=== PATIENT | male | born 1950 | race Caucasian/White ===

== ENCOUNTER 2018-03-30 09:15 | Outpatient (CLI) | payer MEDICARE, OTHER | END 2018-03-30 09:16 | disposition home or self-care (01) | LOC: BICCT 09:15 | PROVIDERS: ATTEND Internal Medicine | DX: R91.1 Solitary pulmonary nodule (principal) | CPT/HCPCS: 71250 ==

== ENCOUNTER 2018-04-26 10:03 | Outpatient (CLI) | payer MEDICARE, OTHER ==
--- NOTE | 2018-04-26 11:59 | RAD ---
2 VIEWS CHEST: Date: 04/26/18 COMPARISON: None. HISTORY: Preoperative radiograph. FINDINGS: Two views of the chest show normal sized cardiomediastinal silhouette. There is no evidence of consol idation, mass, or pleural effusion. Degenerative changes are seen in the spine. IMPRESSION: No evidence of acute cardiopulmonary disease. POS: [facility]
[2018-04-26 13:21] LABS: #Eosinphils 0.1 thou/uL (0.0-0.7); #Lymphocytes 1.4 thou/uL (1.20-3.40); #Monocytes 0.6 thou/uL (0.11-0.59); #Neutrophils 4.2 thou/uL (1.40-6.50); %Basophils 0.8 % (0.0-1.0); %Eosinophils 1.6 % (0.0-10.0); %Lymphocytes 22.6 % (21.0-51.0); Hemoglobin 14.6 g/dL (14.0-18.0); Mean Corpuscular Hemoglobin 32.2 pg (27.0-31.0); Mean Corpuscular Volume 97.4 fL (78.0-98.0); Mean Platelet Volume 8.1 fL (7.4-10.4); Platelet Count 245 thou/uL (130-400); RBC Distribution Width 11.7 % (11.5-14.5); Red Blood Cell (RBC) Count 4.55 mill/uL (4.70-6.10); White Blood Cell (WBC) Count 6.4 thou/uL (4.8-10.8)
[2018-04-26 13:40] LABS: Anion Gap 15 mmol/L (10-20); BUN (Urea Nitrogen) 20 mg/dL (8.4-25.7); Calc. Creatinine Clearance 0 mL/min (70-130); Calcium 9.4 mg/dL (7.8-10.44); Carbon Dioxide 25 mmol/L (23-31); Chloride 104 mmol/L (98-107); Estimated GFR-MDRD 86; Glucose 169 mg/dL (80-115); Potassium 4.7 mmol/L (3.5-5.1); Sodium 139 mmol/L (136-145)
--- NOTE | 2018-04-27 07:58 | EKG ---
Test Reason : Blood Pressure : / mmHG Vent. Rate : 064 BPM Atrial Rate : 064 BPM P-R Int : 166 ms QRS Dur : 150 ms QT Int : 440 ms P-R-T Axes : 064 100 049 degrees QTc Int : 453 ms Normal sinus rhythm Right bundle branch block Abnormal ECG No previous ECGs available Confirmed by DR. Basil BROWN ([id number]) on 04/27/2018 7:57:55 AM Referred By: CHRISTIE Confirmed By:DR. Basil BROWN
== END 2018-04-26 10:04 | disposition home or self-care (01) ==
LOC: LABBT 10:03
PROVIDERS: ATTEND Orthopaedic Surgery Hand Surgery
DX: Z01.818 Encounter for other preprocedural examination (principal); M72.0 Palmar fascial fibromatosis [Dupuytren]
CPT/HCPCS: 71046; 80048; 85025; 93005; 93010

== ENCOUNTER 2018-07-05 09:46 | Outpatient (CLI) | payer MEDICARE, OTHER ==
[2018-07-05 10:20] LABS: Estimated GFR-MDRD - POC Greater than 90
--- NOTE | 2018-07-05 12:22 | CT ---
CT OF THE CHEST AND ABDOMEN AND PELVIS: DATE: 07/05/2018. COMPARISON: Chest CT 03/30/2018. HISTORY: Testicular cancer diagnosed in 2007. Treatment includes radiation and surgery. TECHNIQUE: Serial axial CT imaging at 5 mm intervals from the thoracic inlet through the pubic symphysis with in travenous and oral contrast. Coronal reformatted imaging obtained. FINDINGS: There is no lymphadenopathy in the axillary regions. Stable subcentimeter lymph nodes are noted in the prevascular space and the pretracheal region. There is no pneumothorax on either side. There is no pleural, pericardial, or mediastinal fluid evid ent. There is mild stable apical pleural thickening bilaterally, right greater than left. On axial image 28, there is a pulmonary nodule measuring 5 mm within the left upper lobe, stable. Th e small nodular density seen within the anterior aspect of the left upper lobe on image 30 measuring approximately 6 mm, not discretely visualized on the prior examination. Stable nodule noted laterally in left upper lobe on image 30 measuring in the 4 mm range. Stable 4 mm nodule noted in the left lower lobe on axial image 50. Stable posterior calcified granul ramy noted in left lower lobe on image 44. Stable calcified granuloma present posteriorly in right lower lobe on axial image 32. Tiny nonspecif ic nodule noted in right lower lobe measuring 3-4 mm on axial image 38, not definitely seen on the pr ior examination. Tiny pleural-based peripheral nodular density within right upper lobe on axial image 15 noted, stable . Stable 5 mm pulmonary nodule noted lateral aspect of mid right hemithorax on image 35. Osseous structures of the chest appear grossly unremarkable. No free intraperitoneal air or fluid is noted. The liver, spleen, gallbladder, and pancreas appear unremarkable as do bilateral adrenal glands. Exophytic cyst noted in mid pole of left kidney measuring 2.8 cm. There is a 2nd hypodense 9 mm lesi on in medial aspect mid pole left kidney, too small to characterize, but likely representing an addit ional cyst. No evidence for bowel inflammatory change or bowel obstruction. No lymphadenopathy is noted within the abdomen or the pelvis. Osseous structures of abdomen/pelvis demonstrate no acute findings. Vascular structures of the abdom en and pelvis appear patent. IMPRESSION: Nonspecific bilateral pulmonary nodules are noted, demonstrating no significant interval change. The se most likely are associated with granulomatous disease, but given the patient's history of testicul ar cancer, continued followup is advised via chest CT in 6 months. No lymphadenopathy is noted withi n the chest, abdomen, or pelvis. POS: [facility]
[2018-07-05] MEDS ORDERED: ISOVUE-370 76%-LOCM 1 ML ONE (13:36)
== END 2018-07-05 09:47 | disposition home or self-care (01) ==
LOC: BICCT 09:46
PROVIDERS: ATTEND Internal Medicine
DX: R91.1 Solitary pulmonary nodule (principal); R91.8 Other nonspecific abnormal finding of lung field; Z85.47 Personal history of malignant neoplasm of testis
CPT/HCPCS: 71260; 74177; 82565

== ENCOUNTER 2019-01-17 13:06 | Outpatient (CLI) | payer MEDICARE, OTHER ==
[~2019-01-17 13:06] MED LIST: ISOVUE-370 76%-LOCM 1 ML ONE
[2019-01-17 13:39] LABS: Estimated GFR-MDRD - POC Greater than 90
--- NOTE | 2019-01-17 14:39 | CT ---
Exam: Chest CT with contrast Abdomen CT with contrast Pelvic CT with contrast HISTORY: Pulmonary nodule Correlation: None COMPARISON: 07/05/2018 FINDINGS: Chest CT: Mediastinum: No mass, lymphadenopathy or hematoma. Stable precarinal lymph node. Aorta: Normal caliber. No aneurysm or dissection Heart: Normal size. No significant pericardial fluid. Trachea and central bronchi: Patent Pleural spaces: No significant pleural fluid. Right lung: Stable 4 mm nodule in the inferior right upper lobe. Stable 4 mm nodule in the anterior r ight upper lobe. Stable 2 and 3 mm nodules adjacent to the minor fissure. There are dependent atelectatic changes Left lung:Dependent atelectatic changes. Calcified nodule in the left lower lobe. 3 mm nodule in the lateral aspect of the left lower lobe. Pneumothorax: None Abdomen CT: Gallbladder: Unremarkable Portal vein: Patent Liver: Appropriate enhancement. Spleen: Appropriate enhancement Pancreas: Appropriate enhancement Adrenal glands: Appropriate enhancement Lymphadenopathy: No gastrohepatic, retrocrural or periportal lymphadenopathy Kidneys: Symmetric enhancement. Bilaterally no obstructive uropathy. Stable 1 cm and 2 cm hypodensiti es in the left renal cortex. Mesentery: No mass, lymphadenopathy, free air or free fluid Alimentary canal: Limited evaluation due to lack of oral contrast. No evidence of bowel obstruction. Unremarkable ileocecal junction. Appendix is difficult to appreciate. Nevertheless, no inflammation of the cecal apex. Unremarkable colon. Pelvis CT: No mass, lymphadenopathy, free air or free fluid. Unremarkable urinary bladder. Osseous structures:No lytic or blastic lesions IMPRESSION: .Multiple 3 to 4 mm nodules throughout the lung parenchyma, unchanged.
== END 2019-01-17 13:07 | disposition home or self-care (01) ==
LOC: BICCT 13:06
PROVIDERS: ATTEND Internal Medicine Pulmonary Disease
DX: R91.8 Other nonspecific abnormal finding of lung field (principal)
CPT/HCPCS: 71260; 74177; 82565; Q9966

== ENCOUNTER 2020-06-17 15:12 | Outpatient (CLI) | payer MEDICARE, OTHER ==
--- NOTE | 2020-06-17 17:14 | CT ---
CT CHEST WITHOUT CONTRAST: 06/17/20 HISTORY: Pulmonary nodules. COMPARISON: 01/17/19 and 03/30/18. The scattered tiny pulmonary nodules in the lungs bilaterally remain stable. The largest of these is again seen in the right upper lobe measuring about 4-5 mm. No new lung nodules are seen. Calcified n odules are again noted. No pleural or pericardial effusions are identified. There is no evidence of aneurysmal dilatation of the thoracic aorta. There are degenerative changes in the spine. Upper abdominal tomograms demonstrat e incomplete visualization of the left renal cyst seen on the exam of 01/17/19. IMPRESSION: Stable lung nodules since 03/30/18. POS: [facility]
== END 2020-06-17 15:13 | disposition home or self-care (01) ==
LOC: BICCT 15:12
PROVIDERS: ATTEND Internal Medicine
DX: R91.8 Other nonspecific abnormal finding of lung field (principal)
CPT/HCPCS: 71250

== ENCOUNTER 2020-09-27 14:21 | Observation (INO) | payer MEDICARE, OTHER ==
[2020-09-27 15:14] LABS: #Basophils 0.1 thou/uL (0.0-0.2); #Eosinphils 0.1 thou/uL (0.0-0.7); #Lymphocytes 1.2 thou/uL (1.20-3.40); #Monocytes 0.8 thou/uL (0.11-0.59); #Neutrophils 5.5 thou/uL (1.40-6.50); %Basophils 0.8 % (0.0-1.0); %Eosinophils 1.4 % (0.0-10.0); %Lymphocytes 15.3 % (21.0-51.0); %Monocytes 10.7 % (0.0-10.0); Hemoglobin 14.2 g/dL (14.0-18.0); Mean Corpuscular HGB CONC 32.5 g/dL (32.0-36.0); Mean Corpuscular Hemoglobin 31.4 pg (27.0-31.0); Mean Corpuscular Volume 96.8 fL (78.0-98.0); Mean Platelet Volume 7.5 fL (7.4-10.4); Platelet Count 208 thou/uL (130-400); RBC Distribution Width 11.9 % (11.5-14.5); White Blood Cell (WBC) Count 7.6 thou/uL (4.8-10.8)
[2020-09-27 15:29] LABS: ALT (SGPT) 19 U/L (8-55); AST (SGOT) 18 U/L (5-34); Albumin 3.9 g/dL (3.4-4.8); Anion Gap 12 mmol/L (10-20); BUN (Urea Nitrogen) 23 mg/dL (8.4-25.7); Bilirubin, Total 0.4 mg/dL (0.2-1.2); Calc. Creatinine Clearance 0 mL/min (70-130); Calcium 8.3 mg/dL (7.8-10.44); Carbon Dioxide 24 mmol/L (23-31); Chloride 109 mmol/L (98-107); Globulin 2.4 g/dL (2.4-3.5); Glucose 129 mg/dL (80-115); Potassium 3.9 mmol/L (3.5-5.1); Protein, Total 6.3 g/dL (5.8-8.1); Sodium 141 mmol/L (136-145)
[2020-09-27 15:36] LABS: Alkaline Phosphatase 56 U/L (40-110)
--- NOTE | 2020-09-27 15:46 | CT ---
CT Brain WO Con: 09/27/2020 3:10 PM CLINICAL HISTORY: Dizziness with chills and nausea. IMAGING TECHNIQUE: Multiple CT images were obtained of the brain without IV contrast. COMPARISON: None. FINDINGS: BRAIN: Evidence of acute infarct: None. Evidence of chronic ischemic change:None. Evidence of intracranial hemorrhage: None. Evidence of brain volume loss:None. Evidence of midline shift: Third ventricle and septum pellucidum are midline. Ventricles: Normal. No hydrocephalus. SKULL: Intact. VISUALIZED PARANASAL SINUSES: Clear. MASTOID AIR CELLS: Clear. EXTRACRANIAL SOFT TISSUES: Normal. IMPRESSION: No acute intracranial abnormality.
[2020-09-27] MEDS ORDERED: Acetaminophen 650 MG Suppository PR PRN (17:59)
[2020-09-27] MEDS ORDERED: Acetaminophen 325 MG TAB PO PRN (17:59)
[2020-09-27] MEDS ORDERED: Enoxaparin Sodium 40 MG/0.4 ML SYRINGE SC SCH (18:00)
[2020-09-27] MEDS ORDERED: HumaLOG 300 UNITS/3 ML VIAL SC PRN (18:08)
[2020-09-27] MEDS ORDERED: Dextrose 50% Abboject 50 ML SYRINGE SLOW IVP PRN (18:08)
[2020-09-27] MEDS ORDERED: Dextrose 5% in Water 1,000 ML IV PRN (18:08)
[2020-09-27 18:41] LABS: Troponin I 0.012 ng/mL (< 0.028)
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
[2020-09-27 21:21] LABS: Troponin I 0.014 ng/mL (< 0.028)
[2020-09-27] MEDS ORDERED: Famotidine/PF 20 mg/2ml Vial ONE (21:46)
[2020-09-27] MEDS ORDERED: Enoxaparin Sodium 40 MG/0.4 ML SYRINGE ONE ×2 (21:46→21:47)
[2020-09-27] MEDS ORDERED: Famotidine 20 MG TAB ONE (21:47)
[2020-09-27] MEDS: Famotidine 20 MG TAB PO SCH (21:55)
[2020-09-28 02:58] LABS: SARS-CoV-2 PCR by NAA Not Detected (NotDetected)
[2020-09-28 04:17] LABS: #Basophils 0.1 thou/uL (0.0-0.2); #Eosinphils 0.1 thou/uL (0.0-0.7); #Lymphocytes 1.7 thou/uL (1.20-3.40); #Monocytes 0.6 thou/uL (0.11-0.59); %Basophils 1.1 % (0.0-1.0); %Eosinophils 2.5 % (0.0-10.0); %Lymphocytes 30.3 % (21.0-51.0); %Monocytes 11.2 % (0.0-10.0); %Neutrophils 54.9 % (42.0-75.0); Hemoglobin 14.6 g/dL (14.0-18.0); Mean Corpuscular HGB CONC 32.9 g/dL (32.0-36.0); Mean Corpuscular Hemoglobin 31.9 pg (27.0-31.0); Mean Corpuscular Volume 96.9 fL (78.0-98.0); Mean Platelet Volume 7.5 fL (7.4-10.4); Platelet Count 200 thou/uL (130-400); RBC Distribution Width 12.2 % (11.5-14.5); Red Blood Cell (RBC) Count 4.58 mill/uL (4.70-6.10); White Blood Cell (WBC) Count 5.5 thou/uL (4.8-10.8)
[2020-09-28 04:39] LABS: Anion Gap 12 mmol/L (10-20); BUN (Urea Nitrogen) 20 mg/dL (8.4-25.7); Calc. Creatinine Clearance 0 mL/min (70-130); Calcium 8.5 mg/dL (7.8-10.44); Carbon Dioxide 25 mmol/L (23-31); Cardiac Risk 2.9 (Less than 4.5); Chloride 109 mmol/L (98-107); Cholesterol 120 mg/dl (< 200 Desired); Glucose 138 mg/dL (80-115); HDL Cholesterol 41 mg/dL (>60 Neg Risk); LDL Cholesterol, Calculated 65 mg/dL; Magnesium 2.2 mg/dL (1.6-2.6); Sodium 142 mmol/L (136-145); Triglycerides 69 mg/dL (Less than 150)
--- NOTE | 2020-09-28 07:31 | ULT ---
BILATERAL CAROTID DUPLEX ULTRASOUND: HISTORY: Dizziness TECHNIQUE: Grayscale, color-flow and spectral Doppler ultrasound imaging of the extracranial carotid artery syst ems was performed bilaterally. FINDINGS: No significant plaque formation or intimal wall thickening is seen. The peak systolic velocity in the right ICA measures 53 cm/s with an end-diastolic velocity of 19 cm/ s and a systolic ratio of 0.46. The peak systolic velocity in the left ICA measures 61 cm/s with an end-diastolic velocity of 25 cm/s and a systolic ratio of 0.60. Flow in both vertebral arteries remains antegrade. IMPRESSION: No evidence of hemodynamically significant stenosis in either ICA.
[2020-09-28] MEDS ORDERED: Famotidine 20 MG TAB ONE (08:51)
[2020-09-28] MEDS ORDERED: Aspirin 325 MG TAB ONE (08:51)
[2020-09-28] MEDS: Aspirin 325 mg Enteric Coated Tablet PO SCH (09:13)
[2020-09-28] MEDS: Famotidine 20 MG TAB PO SCH ×2 (09:14→20:57)
[2020-09-28] MEDS ORDERED: HumaLOG 300 UNITS/3 ML VIAL ONE (11:41)
[2020-09-28] MEDS: HumaLOG 300 UNITS/3 ML VIAL SC PRN (11:44)
--- NOTE | 2020-09-28 14:48 | MRI ---
MRI BRAIN WITHOUT CONTRAST: HISTORY: TIA, dizziness CORRELATION: CT scan from 09/27/2020. FINDINGS: No restricted diffusion is seen. The ventricular size is appropriate and the basilar cisterns are pat ent. No evidence of acute infarct, hemorrhage, midline shift or abnormal extra-axial fluid collections is seen. The visualized paranasal sinuses and mastoid air cells are well-aerated. IMPRESSION: No evidence of acute intracranial process.
[2020-09-28 15:36] VITALS: BMI 25.3
--- NOTE | 2020-09-28 18:05 | PDOC.HOSPP ---
- Subjective Encounter Date: 09/28/20 Subjective: no c/o chest pain or dizziness. Feels better - Objective Vital Signs & Weight: Vital Signs (12 hours) Temp Pulse Resp BP Pulse Ox 09/28/20 15:10 98.1 F 88 18 118/62 97 Weight Weight 187 lb 1.6 oz Result Diagrams: 09/29/20 05:07 09/29/20 05:07 Additional Labs: Accuchecks 09/28/20 09/28/20 17:16 08:30 POC Glucose 98 130 H Hospitalist ROS - Medication Medications: Active Medications Generic Name Dose Route Start Last Admin Trade Name Freq PRN Reason Stop Dose Admin Aspirin 325 mg 09/28/20 09:00 09/28/20 09:13 Aspirin 325 Mg Enteric Coated Tablet PO 325 mg DAILY SHERICE Administration Famotidine 20 mg 09/27/20 21:00 09/28/20 09:14 Famotidine 20 Mg Tab PO 20 mg BID SHERICE Administration Insulin Human Lispro 0 units 09/27/20 18:08 09/28/20 11:44 Humalog 300 Units/3 Ml Vial SC 2 unit .MILD SLIDING SCALE PRN Administration Mild Correctional Scale Hospitalist Exam Vitals: Vital Signs (12 hours) Temp Pulse Resp BP Pulse Ox 09/28/20 15:10 98.1 F 88 18 118/62 97 Weight Weight 187 lb 1.6 oz General Appearance: awake alert Eye: PERRL, anicteric sclera ENT: no oropharyngeal lesions, moist mucosa Neck: supple, no JVD Heart: RRR, no murmur Respiratory: no wheezes, no rales Gastrointestinal: soft, non-tender, non-distended, normal bowel sounds Extremities: no cyanosis, no edema Neurological: cranial nerve grossly intact, no focal deficits Hosp A/P (1) Pre-syncope Status: Acute (2) Dizziness Code(s): R42 - DIZZINESS AND GIDDINESS Status: Acute (3) Dyslipidemia Code(s): E78.5 - HYPERLIPIDEMIA, UNSPECIFIED Status: Chronic (4) Mood disorder Code(s): F39 - UNSPECIFIED MOOD [AFFECTIVE] DISORDER Status: Chronic (5) Type 2 diabetes mellitus Status: Chronic Qualifiers: Diabetes mellitus intermediate insulin use: without intermediate use - Plan orthostatic BP continue asprin, pepcid and prozac, hold antihtn meds oral diet, will add dm meds if eating well hemostable, ldl is 65, trop x3 is -ve, ekg shows rbbb in sinus rhythm. mri, carotids, echo have been normal so far. PT to mobilize as tolerated
[2020-09-28] MEDS ORDERED: Enoxaparin Sodium 40 MG/0.4 ML SYRINGE SC SCH (21:00)
[2020-09-29 05:27] LABS: #Basophils 0.1 thou/uL (0.0-0.2); #Eosinphils 0.2 thou/uL (0.0-0.7); #Lymphocytes 1.6 thou/uL (1.20-3.40); #Monocytes 0.8 thou/uL (0.11-0.59); #Neutrophils 3.8 thou/uL (1.40-6.50); %Basophils 0.9 % (0.0-1.0); %Eosinophils 2.5 % (0.0-10.0); %Lymphocytes 25.3 % (21.0-51.0); %Monocytes 12.6 % (0.0-10.0); %Neutrophils 58.7 % (42.0-75.0); Hemoglobin 15.2 g/dL (14.0-18.0); Mean Corpuscular HGB CONC 33.2 g/dL (32.0-36.0); Mean Corpuscular Hemoglobin 32.1 pg (27.0-31.0); Mean Corpuscular Volume 96.7 fL (78.0-98.0); Mean Platelet Volume 7.8 fL (7.4-10.4); Platelet Count 196 thou/uL (130-400); Red Blood Cell (RBC) Count 4.72 mill/uL (4.70-6.10); White Blood Cell (WBC) Count 6.5 thou/uL (4.8-10.8)
[2020-09-29 05:46] LABS: Anion Gap 12 mmol/L (10-20); BUN (Urea Nitrogen) 18 mg/dL (8.4-25.7); Calc. Creatinine Clearance 89 mL/min (70-130); Calcium 8.2 mg/dL (7.8-10.44); Carbon Dioxide 24 mmol/L (23-31); Chloride 108 mmol/L (98-107); Glucose 144 mg/dL (80-115); Potassium 4.1 mmol/L (3.5-5.1); Sodium 140 mmol/L (136-145)
[2020-09-29] MEDS: Aspirin 325 mg Enteric Coated Tablet PO SCH (08:59)
[2020-09-29] MEDS: Famotidine 20 MG TAB PO SCH (09:00)
[2020-09-29] MEDS ORDERED: FLU VACC QS2020-21(65YR UP)/PF 240 MCG/0.7 ML SYRINGE IM ONE (09:00)
[2020-09-29] MEDS ORDERED: Losartan 25 MG TAB PO SCH (09:00)
[2020-09-29] MEDS ORDERED: PARoxetine 20 MG TAB PO SCH (09:00)
[2020-09-29] MEDS: HumaLOG 300 UNITS/3 ML VIAL SC PRN (11:30)
[2020-09-29] MEDS ORDERED: metFORMIN 500 MG TAB PO SCH (11:40)
[2020-09-29 11:46] VITALS: BP 114/76; TEMP 97.7
--- NOTE | 2020-09-29 12:30 | CON ---
DATE OF CONSULTATION: 09/29/2020 Mr. Cristina is a 70-year-old male who was consulted because of an episode of dizziness and near syncope to rule out transient ischemic attack. MRI of the brain reviewed which was negative for acute intracranial pathology. Carotid Doppler did not show hemodynamically significant stenosis. 2D echo showed left ventricular ejection fraction of 50% to 55%. No thrombus or PFO. Continue aspirin for secondary stroke prevention. Strict control of blood pressure and blood glucose Patient discussed with the nursing staff. Attempted to see patient but discharged. Job ID: [id number] [facility]
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
[2020-09-30] MEDS ORDERED: metFORMIN 500 MG TAB PO SCH (08:00)
== END 2020-09-29 12:00 | disposition home or self-care (01) ==
LOC: ERS 14:21 → ERHOLD 17:59 → 2NO 09-28 15:35
PROVIDERS: ADMIT Internal Medicine; ATTEND Internal Medicine
DX: R55 Syncope and collapse (principal); R42 Dizziness and giddiness; I95.9 Hypotension, unspecified; I45.10 Unspecified right bundle-branch block; E11.9 Type 2 diabetes mellitus without complications; E78.5 Hyperlipidemia, unspecified; F39 Unspecified mood [affective] disorder; Z79.82 Long term (current) use of aspirin; Z79.84 Long term (current) use of oral hypoglycemic drugs; Z79.899 Other long term (current) drug therapy; Z88.0 Allergy status to penicillin; Z91.013 Allergy to seafood; Z20.822 Contact with and (suspected) exposure to COVID-19
CPT/HCPCS: 70450; 70551; 80048 ×2; 80053; 80061; 82962 ×2; 83735; 83880; 84484 ×2; 85025 ×3; 93005; 93306; 93880; 97139; 99285; U0003; U0005; 36415; 36416; 87635; 96372; G0378; J1650; J1815; S0028